=== PATIENT | female | born 1950 | race Caucasian/White ===

== ENCOUNTER 2016-12-15 01:25 | Inpatient (IN) | payer OTHER ==
--- NOTE | ~2016-12-15 | DS ---
Discharge Summary [facility] [address] [place]. [address] NAME: GEETHA SWIFT : 54 STATUS : DIS IN PAT#: [id number] AGE: 66 ADM/REG DATE : 12/15/16 MR#: [id number] REPORT SERV DATE: 12/19/16 DICTATED BY: CAIT MURRIETA DATE: 12/17/16 REPORT STATUS : Draft TRANSCRIBED BY: MODL DATE: 12/17/16 ADMISSION DATE: 12/15/2016 DISCHARGE DATE: 12/17/2016 CONSULTANTS: Bob Fitzgerald M.D. and Tyson Pope MD, Cardiology. DISCHARGE DIAGNOSES: 1. Chest pain suggestive of coronary artery disease. 2. Paroxysmal atrial fibrillation with rapid ventricular response, new onset. 3. Mild elevation of troponin after the atrial fibrillation. 4. Peripheral arterial disease with previous leg [facility] [employer] [facility] [employer], Dr. Martinez. 5. Chronic obstructive pulmonary disease and active smoker. 6. Hypertension. 7. Impaired glucose tolerance with A1c 6.3%. 8. Positive family history of coronary artery disease. 9. Previous DVT and pulmonary embolism in 2011. 10.Generalized anxiety disorder. 11.Chronic pain due to fibromyalgia and back problems. HISTORY: This patient had intermittent chest pain for three days, got worse on 12/14/2016 with anterior mid chest radiating to the midback. No associated nausea, but did have associated shortness of breath, worsened with activity. Did not have any nitroglycerin to try. It did last several hours. Because of this pain, she was referred to our team for inpatient care. EKG on admission revealed sinus rhythm with some nonspecific ST and T-wave changes. Her initial cardiac troponin was normal x3. She was going to undergo a nuclear stress test, but then had a rapid atrial fibrillation that was new, she got Cardizem, this converted back into sinus rhythm. We put her on a heparin drip until we found out the Eliquis was reasonable cost co-payment for her. Talked to her about the benefits of it and the risks, and she chose to go with Eliquis which we put her on. Initially, when she was sent from an outside ER, they were concerned about a pulmonary embolism because the D-dimer had been elevated, so when she first arrived here, she got V/Q scan of the lungs on 12/15/2016 which revealed low probability for pulmonary embolism. She had a venous Doppler of her lower extremities. No evidence of deep vein thrombosis. Because of the V/Q scan, she was not able to undergo a nuclear stress test the next day, so claim administrator Dr. Bob Fitzgerald, suggested a PET CT. The patient was going to get that, but because of the Cardizem that was given for the rapid atrial fib early on the morning of the , she was not able to get her PET scan. Baby Nurse, Dr. Pope saw her and stated she should wait till the morning of the and get a myocardial perfusion imaging. The patient had no further episodes of chest pain. No further episodes of atrial fibrillation, but after that rapid atrial fibrillation, her troponin did go up to a peak of 0.09 and then back down to 0.06, most likely related to the rapid ventricular response. On the morning of 12/17/2016, she went for her nuclear stress test; however, as they were infusing the stress material, portion of it apparently spilled onto the floor, was not recognized initially, the Discharge Summary [place] [id number] [facility] [place]. [address] NAME: GEETHA SWIFT : 54 STATUS : DIS IN PAT#: [id number] AGE: 66 ADM/REG DATE : 12/15/16 MR#: [id number] REPORT SERV DATE: 12/19/16 DICTATED BY: CAIT MURRIETA DATE: 12/17/16 REPORT STATUS : Draft TRANSCRIBED BY: VERN DATE: 12/17/16 imaging material was injected, but then they realized that the stress material had mostly spilled, so it was an aborted test, was not of any value. I talked with Dr. Patel who was supervising nuclear stress test that day. I advised the patient that the safest route would be for her to stay in the hospital until she get a nuclear stress test on 12/19/2016. The [facility] system does not allow nuclear stress test on Sundays. The patient stated that she is not willing to stay. She states she wants to go home. Her grand babies are having their birthday today, they were twins. I told her again that the safest route was to stay, she is polite about it, but she is quite clear she wants to go home. Dr. Patel and I spoke further, he indicated she could come back on 12/19/2016 at 8 a.m. to the [facility] and they would do a nuclear stress test on her at that time. But in preparation for it, he wants her to hold off on her amlodipine and her atenolol, and of course to be n.p.o. after midnight the night before. I have talked to the patient about this as well, and she is to come back to the ER immediately if she has recurrent pain. I have stressed to her the importance of discontinuing tobacco and to try to use nicotine patches. DISCHARGE MEDICATIONS: Aspirin 325 mg daily, gabapentin 300 mg twice a day, nicotine patch 21 mg size [id number], Prilosec 20 mg twice a day, Pravachol 20 mg at bedtime, Tylenol 650 q.4 hours p.r.n. pain, metformin 1000 mg b.i.d. with meals, oxycodone 10 mg q.6 hours p.r.n. pain which is a chronic medicine for her, Eliquis 5 mg p.o. b.i.d. In preparation for the nuclear stress test, she is holding off her Tenoretic 100/25 that she used to take once a day and she is also holding off Exforge 10/320, as she is holding once a day. Her blood pressures here have been running from 116 to 144 systolic, 60s diastolic; heart rates are running in the 57 to 100 range with no recurrent atrial fib at this time. Her echocardiogram showed left ventricular ejection fraction 55%. No significant abnormalities. I spent 75 minutes today with the patient and with her family and with Cardiology and with discharge planning. RSG/MODL Cait Murrieta M.D. / [id number] CC: Lakhwinder Lazar MD Gordon Graham, M.D. Mark W Fugate, M.D.
--- NOTE | ~2016-12-15 | HP ---
History And Physical [place] [id number] [place]. [address] NAME: GEETHA SWIFT : 54 STATUS : ADM Carlitos PAT#: [id number] AGE: 66 ADM/REG DATE : 12/15/16 MR#: [id number] REPORT SERV DATE: 12/15/16 DICTATED BY: DELFINO GUADARRAMA DATE: 12/15/16 REPORT STATUS : Draft TRANSCRIBED BY: MODL DATE: 12/15/16 DATE OF ADMISSION: 12/15/2016 POINT OF ENTRY: Transfer from [facility] Emergency Department. PRIMARY CARE PHYSICIAN: Dr. Hansen. CHIEF COMPLAINT: Chest pain with shortness of breath. HISTORY OF PRESENT ILLNESS: Ms Swift is a 66-year-old female with a history of hypertension, hyperlipidemia, mcc-uyszxay-wmirjwjwe diabetes mellitus type 2, active tobacco abuse as well as peripheral arterial disease, who presented to [facility] Emergency Department on the evening of 12/14/2016 with reports of acute onset of substernal chest pain with associated shortness of breath. The patient states that she has had issues with substernal chest pain described as pressure intermittently for the past week or so. She describes the episode that prompted her to present to the emergency department that began about 3:00 p.m. on Monday afternoon, it was substernal in location described as pressure. She denied any radiation to extremities, back, neck, or jaw. Does describe some associated shortness of breath. The patient does report that one of her chest pain episodes a few days ago did radiate to her back at one point in time. Initial evaluation at [facility] Emergency Department notable for an EKG that was nonischemic. Troponin was negative. D-dimer was checked, it was mildly elevated at 0.73. Remainder of her labs were otherwise unremarkable. CT of the chest was unable to be obtained as she is allergic to IV dye which causes diffuse swelling including facial swelling. The ER physician then was going to place her empirically on therapeutic anticoagulation; however, she had told him that she recently has been having some trouble with some rectal bleeding. Therefore, she was subsequently transferred to [facility] for higher level of care. The patient was last admitted to our hospital in 2014 for syncope as well as atypical sounding chest pain. Echocardiogram as well as serial cardiac enzymes and stress test were all unremarkable. During that hospitalization, she had a D-dimer checked that was mildly elevated at 0.79, at that time she declined any inpatient workup for the elevated D-dimer level. She does state that her primary care physician did check a lower extremity Doppler for this elevated D-dimer level and reportedly was unremarkable. The patient describes some rectal bleeding, were pressed for some more detail. She describes that occasionally she will see some bright red blood in her underwear or on the toilet paper, but denies any melena or russ hematochezia or any blood noted in the toilet bowl water. She does endorse a known history of colonic polyps as well as internal hemorrhoids. Daughter also states that she continues to occasionally suffer troubles with syncope. She otherwise denies any fevers, night sweats, chills, cough, sputum production, abdominal pain, nausea, vomiting, diarrhea, constipation, melena, hematochezia, or History And Physical [address] [address] NAME: GEETHA SWIFT : 54 STATUS : ADM Carlitos PAT#: [id number] AGE: 66 ADM/REG DATE : 12/15/16 MR#: [id number] REPORT SERV DATE: 12/15/16 DICTATED BY: DELFINO GUADARRAMA DATE: 12/15/16 REPORT STATUS : Draft TRANSCRIBED BY: VERN DATE: 12/15/16 hemoptysis. REVIEW OF SYSTEMS: Comprehensive review of systems otherwise negative unless listed in history of present illness. The patient states that upon arrival here she was still having some chest pain; however, was much improved. However, at the time of my evaluation she adamantly denies any chest pain or shortness of breath whatsoever. PREVIOUS MEDICAL HISTORY: 1. Hypertension. 2. Hyperlipidemia. 3. Hbl-utjbyer-tmvexkfoz diabetes mellitus type 2. 4. History of DVT approximately 2011, no longer on anticoagulation. 5. COPD on 2 L by nasal cannula. 6. Chronic lower back pain. 7. Fibromyalgia. 8. Active tobacco abuse. 9. Peripheral arterial disease status post lower extremity revascularization. PAST SURGICAL HISTORY: 1. Cholecystectomy. 2. Appendectomy. 3. Abdominal hysterectomy. 4. Bilateral lower extremity revascularization. The patient does states she has had stents placed by Dr. Martinez. ALLERGIES: REPORTED TO BE LATEX WELL IV DYE, STATES THE IV DYE CAUSES DIFFUSE SWELLING INCLUDING FACE, LIPS, AND TONGUE. HOME MEDICATIONS: 1. Exforge 10-320 mg one tablet daily. 2. Aspirin 325 mg daily. 3. Gabapentin 300 mg b.i.d. 4. Metformin 1000 mg b.i.d. 5. Omeprazole 20 mg b.i.d. 6. Roxicodone 10 mg q.6 hours. 7. Atenolol dose unknown. SOCIAL HISTORY: She smokes about a half pack per day. Denies any alcohol. Denies any illicits. FAMILY MEDICAL HISTORY: Parents both with coronary artery disease, diabetes, and hypertension. Siblings with diabetes and coronary artery disease. LABS AND IMAGING: All obtained from transfer records from [facility]. 1. White count 11.6, hemoglobin 15.6, hematocrit is 46.0, and platelet count is 320. 2. Sodium is 142, potassium 4.0, chloride 106, carbon dioxide 26, BUN 10, creatinine 0.9, History And Physical [address] [address] NAME: GEETHA SWIFT : 54 STATUS : ADM Carlitos PAT#: [id number] AGE: 66 ADM/REG DATE : 12/15/16 MR#: [id number] REPORT SERV DATE: 12/15/16 DICTATED BY: DELFINO GUADARRAMA DATE: 12/15/16 REPORT STATUS : Draft TRANSCRIBED BY: VERN DATE: 12/15/16 glucose is 140, calcium is 9.5, protein is 7.3, albumin is 4.0, bilirubin is 0.2, ALT 26, AST 15, and alkaline phosphatase is 138. 3. Troponin less than 0.02. 4. D-dimer 0.73 cutoff is less than 0.50. 5. EKG, this is obtained at [facility], per my review shows normal sinus rhythm with some very faint anterolateral T-wave flattening, but no appreciable ST elevations or depressions. 6. Chest x-ray per report from transfer records there was no acute cardiopulmonary abnormality. PHYSICAL EXAMINATION: VITAL SIGNS: Temperature is 98.6 degrees Fahrenheit, pulse is 76, respirations 16, saturating 94% on room air, and blood pressure is 181/88. GENERAL: The patient is awake and alert, in no acute distress. Resting comfortably in bed. She is a well-developed, well-nourished, elderly female. HEENT: Atraumatic and normocephalic. Moist mucous membranes. Pupils are equal, round, reactive to light and accommodation. Extraocular eye movements are intact. No scleral icterus. NECK: No jugular venous distention. No carotid bruits. CARDIAC: Regular rate and rhythm. No murmurs, rubs, or gallops. Normal S1. Normal S2. LUNGS: Clear to auscultation bilaterally. No wheezes, rhonchi, or crackles, but does have some decreased breath sounds at bases as well as prolonged expiratory phase. ABDOMEN: Soft, nontender, and nondistended. Good bowel sounds. No rebound, guarding, or rigidity. EXTREMITIES: Warm and perfused. No cyanosis, clubbing, or edema. Does have 1+ lower extremity pulses bilaterally. I do not appreciate any palpable cords. There is no tenderness on palpation of her lower extremities. SKIN: Warm and dry. PSYCH: Affect appropriate. NEURO: Alert and oriented x3. Cranial nerves 2 through 12 grossly intact. Speech is normal. Gait not assessed. ASSESSMENT AND PLAN: Ms Swift is a 66-year-old female with the following cardiovascular risk factors including active tobacco abuse, hypertension, hyperlipidemia, diabetes, as well as a known history of peripheral arterial disease and a strong family history, who presents with chest pain and associated shortness of breath. Also found to have a mildly elevated D- dimer level of uncertain significance. PROBLEM LIST: 1. Chest pain. 2. Elevated D-dimer level. 3. Rectal bleeding. 4. Hypertension. 5. Active tobacco abuse. 6. Peripheral arterial disease. PLAN: History And Physical [address] [address] NAME: GEETHA SWIFT : 54 STATUS : ADM Carlitos PAT#: [id number] AGE: 66 ADM/REG DATE : 12/15/16 MR#: [id number] REPORT SERV DATE: 12/15/16 DICTATED BY: DELFINO GUADARRAMA DATE: 12/15/16 REPORT STATUS : Draft TRANSCRIBED BY: MODL DATE: 12/15/16 1. Chest pain. The patient does have multiple cardiovascular risk factors including tobacco abuse, hypertension, hyperlipidemia, diabetes, family history and peripheral arterial disease. We will continue to trend out cardiac enzymes and order a stress test for the patient in the morning. Of note, the patient denies any chest pain at this time. Continue her home aspirin as well as Exforge. We will place her on some low-dose metoprolol as we are unable to confirm her dose of atenolol at this time. We will check an A1c as well as lipid panel. 2. Elevated D-dimer level. Uncertain significance of the elevated D-dimer level. She did have a mildly elevated D-dimer level of almost the exact value during her hospitalization in 2014. Given her IV contrast allergy, we will order a lower extremity Doppler as well as a V/Q scan to address the elevated D-dimer level too. 3. Rectal bleeding. Based on description and history, it sounds like this is likely a hemorrhoidal bleed. She does state she had a recent colonoscopy about a month ago that showed polyps as well as the internal hemorrhoids. This is done at [facility], we will try to obtain those records. 4. Hypertension. The patient noted to be very hypertensive at the outside emergency department with some mild improvement here. We will continue the patient's home medications as well as place the patient on some nitroglycerin paste with IV hydralazine p.r.n. for elevated blood pressure. 5. Ykv-ctwooou-awetjutpy diabetes mellitus type 2. Holding the patient's metformin. Place her on level 1 insulin sliding scale. 6. Active tobacco abuse. Counseled on need for tobacco cessation. Nicotine replacement protocol. 7. DVT prophylaxis. We will place her on Lovenox subcu at this time given the patient's hemoglobin 15.6, as well as what sounds to be a fairly mild hemorrhoidal type bleeding based on history. CODE STATUS: The patient wished to be full code. JCB/MODL Delfino Guadarrama MD / [id number] CC: Theodore Murrieta M.D.
--- NOTE | ~2016-12-15 | CN ---
Consultation Report [facility] [address] [place]. [address] NAME: JAMMIE SWIFT : 54 STATUS : ADM Carlitos PAT#: [id number] AGE: 66 ADM/REG DATE : 12/15/16 MR#: [id number] REPORT SERV DATE: 12/15/16 DICTATED BY: BOB FITZGERALD DATE: 12/15/16 REPORT STATUS : Draft TRANSCRIBED BY: MODL DATE: 12/15/16 DATE OF CONSULTATION: 12/15/2016 REASON FOR CONSULTATION: Ms. Jammie Swift is a 66-year-old female who is referred for evaluation of chest discomfort. HISTORY OF PRESENT ILLNESS: Ms. Jammie Swift was seen at an outside facility with chest discomfort. She had positive D-dimer and therefore underwent a V/Q scan. She continues to complain of chest pain and is now scheduled for a stress test. Chest discomfort started about two weeks ago. It occurs in the mid epigastrium. It is difficult to differentiate because she also has a history of GERD. There is no associated exercise factor, but she is fairly sedentary. It does not radiate and it does not seem to be associated with nausea, vomiting, diaphoresis, or shortness of breath. REVIEW OF SYSTEMS: Negative for exertional symptoms. No history of palpitations, syncope, or presyncope is noted. Rest is negative. PAST MEDICAL HISTORY: 1. Peripheral vascular disease. 2. Hyperlipidemia, currently on Pravachol 20 mg. 3. Hypertension. 4. History of DVT. 5. COPD with continued cigarette smoking. FAMILY HISTORY: Positive for heart disease. SOCIAL HISTORY: She continues to smoke on a regular basis. PHYSICAL EXAMINATION: VITAL SIGNS: Blood pressure is 173/79, pulse is 81, she is afebrile. GENERAL: Resting comfortably at this time, nutritional status appears adequate. EYES: PERRLA. LUNGS: No labored use of accessory muscles. Without rales or wheezes. COR: PMI is not displaced. No thrills or heaves. NL S1 and S2. No S3, murmur, click or rub. PULSES: Carotids without bruits. ABD: +BS, nontender. EXT: No cyanosis, clubbing or edema. SKIN: No petechiae. NEURO: Alert and oriented. Does not appear anxious or depressed. LABORATORY EVALUATION: Troponin is negative. EKG shows sinus rhythm with nonspecific repolarization abnormalities, but no changes suggestive of ischemia. Consultation Report [place] [id number] [place]. [address] NAME: JAMMIE SWIFT : 54 STATUS : ADM Carlitos PAT#: [id number] AGE: 66 ADM/REG DATE : 12/15/16 MR#: [id number] REPORT SERV DATE: 12/15/16 DICTATED BY: BOB FITZGERALD DATE: 12/15/16 REPORT STATUS : Draft TRANSCRIBED BY: VERN DATE: 12/15/16 ASSESSMENT AND PLAN: 1. At this time with her history of peripheral vascular disease and significant risk factors, we would assume she has coronary artery disease and treat accordingly. This would include aspirin and beta-tatiana. I would then do a PET scan (we will not have to wait after V/Q scan) for risk stratification. If high risk, would proceed with cardiac catheterization. If low risk, would remain on medical therapy. She does have a dye allergy and this needs to be factored in. 2. Hyperlipidemia, we will start Pravachol 20 mg. 3. Hypertension. At this time, we will be adding beta-tatiana for better blood pressure control. SAJI/VERN Bob Fitzgerald M.D. / [id number] CC: Lakhwinder LazarKENNYBONNY EPSTEIN
[~2016-12-15 01:25] MED LIST: *UNABLE1; ASABAYER PO; CELEXA40 MG PO; COMBIVENT RESPIM4 GM INH; NEUR300 PO; NIFEDIAC CC60 MG PO; NIFEDIAC CC90 MG PO; NITROSTAT0.4 MG SL; OXYCOD PO; PERCOCET1 TA4 PO; PRAVAC PO; PRAVASTATIN PO; PRILO PO; PROAIR HFA INH; TENORETIC1 TAB PO; ULTRAM50 PO; XANAX1 MG PO; ZYPREXA10 MG PO
[2016-12-15] MEDS ORDERED: ASA5GR PO (01:51)
[2016-12-15] MEDS ORDERED: EXFORGE1 TA3 PO (01:51)
[2016-12-15] MEDS ORDERED: *UNABLE1 PO (01:55)
[2016-12-15] MEDS ORDERED: ATEN100 PO (01:55)
[2016-12-15] MEDS ORDERED: OXYCOD PO (01:56)
[2016-12-15] MEDS ORDERED: PRILO PO (01:56)
[2016-12-15] MEDS ORDERED: NEUR300 PO (01:57)
[2016-12-15] MEDS ORDERED: GLUCOPHAGE1000 MG PO (01:57)
[2016-12-15] MEDS ORDERED: TENORETIC1 TA1 PO (02:50)
[2016-12-15 03:46] LABS: TROPONIN I <0.02 NG/ML (<0.05)
[2016-12-15 03:47] LABS: CK-MB 0.7 NG/ML; CPK 87 U/L (0-200)
[2016-12-15 06:28] LABS: CHOL/HDL RATIO(NOT ORDER) 3.9 (0-5)
[2016-12-15 11:33] LABS: TROPONIN I <0.02 NG/ML (<0.05)
[2016-12-15 11:39] LABS: CK-MB 0.5 NG/ML; CPK 41 U/L (0-200)
[2016-12-16 11:32] LABS: BUN (BLOOD UREA NITROGEN) 16 MG/DL (6-23); CALCIUM, SERUM 8.7 MG/DL (8.5-10.4); CHLORIDE, SERUM 110 MMOL/L (96-112); CO2 (CARBON DIOXIDE) 26 MMOL/L (24-34); CREATININE 0.78 MG/DL (0.55-1.02); GFR AFRICAN AMERICAN 93 ML/MIN (>=60); GFR NON AFRICAN AMERICAN 80 ML/MIN (>=60); GLUCOSE, SERUM 110 MG/DL (60-99); SODIUM, SERUM 144 MMOL/L (135-148)
[2016-12-16 11:33] LABS: POTASSIUM, SERUM 4.5 MMOL/L (3.5-5.3)
[2016-12-17] MEDS ORDERED: PRAVAC PO (15:29)
[2016-12-17] MEDS ORDERED: HABIT21 TOP (15:29)
[2016-12-17] MEDS ORDERED: T PO (15:30)
[2016-12-17] MEDS ORDERED: ELIQUIS 5 MG TAB5 MG PO (15:31)
== END 2016-12-17 16:09 | disposition home or self-care (01) | DRG 310 ==
LOC: 1SO 01:25
PROVIDERS: Hospitalist; Internal Medicine
DX: I48.0 Paroxysmal atrial fibrillation (principal); I10 Essential (primary) hypertension; E78.5 Hyperlipidemia, unspecified; J44.9 Chronic obstructive pulmonary disease, unspecified; M79.7 Fibromyalgia; K21.9 Gastro-esophageal reflux disease without esophagitis; E11.9 Type 2 diabetes mellitus without complications; G89.29 Other chronic pain; M54.5 Low back pain; K64.8 Other hemorrhoids; F17.210 Nicotine dependence, cigarettes, uncomplicated; F41.1 Generalized anxiety disorder; I73.9 Peripheral vascular disease, unspecified; Z79.84 Long term (current) use of oral hypoglycemic drugs; Z79.82 Long term (current) use of aspirin; Z79.899 Other long term (current) drug therapy; Z86.718 Personal history of other venous thrombosis and embolism; Z86.010 Personal history of colon polyps; Z91.040 Latex allergy status; Z91.041 Radiographic dye allergy status
CPT/HCPCS: 36415; 71020; 78452; 78582; 80048; 80061; 82550; 82553; 82962; 83036; 83735; 84443; 84484; 85730; 86850; 86900; 86901; 93005; 93017; 93970; A9270-GY; A9502; A9540; A9567; C8929; J0153; J2785; Q9957